=== PATIENT | female | born 1990 | race Caucasian/White ===

== ENCOUNTER 2016-08-31 13:25 | Emergency (ER) | payer BC, OTHER ==
[2016-08-31 13:40] VITALS: RESP 18
--- NOTE | 2016-08-31 14:02 | ED ---
Abdominal Pain HPI - General Chief Complaint: Abdominal Pain Stated Complaint: sharp pain under left rib Time Seen by Provider: 08/31/16 13:43 Source: patient, RN notes reviewed Mode of arrival: ambulatory Limitations: no limitations - History of Present Illness Initial Comments: 26-year-old female presents emergency Department chief complaint of left-sided rib pain. Patient states started last night and has not been better today. Patient denies any nausea, vomiting diarrhea constipation. Patient states that she had a low-grade urinary frequency but no dysuria. Denies fever or chills. She states it hurts when she twists and bends and also when she takes a deep inspiration. She denies any shortness of breath or pleuritic Chest pain. Patient denies any trauma. She had no history of abdominal surgeries. Denies any chance . Patient denies any recent cold-like symptoms. - Related Data Home Medications Medication Instructions Recorded Confirmed Desogestrel-Ethinyl Estradiol 1 tab PO DAILY 08/31/16 08/31/16 [Juleber 28 Day Tablet] Allergies Allergy/AdvReac Type Severity Reaction Status Date / Time erythromycin base Allergy Rash/Hives Verified 08/31/16 14:20 [Erythromycin Base] peanut Allergy Anaphylaxis Verified 08/31/16 14:20 tree nut [Tree Nut] Allergy Anaphylaxis Verified 08/31/16 14:20 Review of Systems ROS Statement: Those systems with pertinent positive or pertinent negative responses have been documented in the HPI. ROS Other: All systems not noted in ROS Statement are negative. Past Medical History Past Medical History: Seizure Disorder History of Any Multi-Drug Resistant Organisms: None Reported Past Surgical History: No Surgical Hx Reported Past Anesthesia/Blood Transfusion Reactions: No Reported Reaction Past Psychological History: No Psychological Hx Reported Smoking Status: Never smoker Past Alcohol Use History: Occasional Past Drug Use History: None Reported - Past Family History Mother Family Medical History: Unable to Obtain General Exam Limitations: no limitations General appearance: alert, in no apparent distress Head exam: Present: atraumatic, normocephalic, normal inspection Respiratory exam: Present: normal lung sounds bilaterally, chest wall tenderness (Moderate tenderness of the left anterior to lateral chest wall/ribs) . Absent: respiratory distress, wheezes, rales, rhonchi, stridor Cardiovascular Exam: Present: regular rate, normal rhythm, normal heart sounds. Absent: systolic murmur, diastolic murmur, rubs, gallop, clicks GI/Abdominal exam: Present: soft, normal bowel sounds. Absent: distended, tenderness, guarding, rebound, rigid Back exam: Absent: CVA tenderness (R), CVA tenderness (L) Course Vital Signs 08/31/16 13:36 Temperature 98.6 F Pulse Rate 68 Respiratory 18 Rate Blood Pressure 147/81 O2 Sat by Pulse 100 Oximetry Medical Decision Making - Medical Decision Making 26-year-old female presents emergency from for left chest wall pain. EKG within normal limits, chest x-ray, KUB within normal. urinalysis within normal limits. Patient also has chest wall inflammation. Patient be discharged time return parameters. - Lab Data Lab Results 08/31/16 08/31/16 Range/Units 14:00 14:00 Urine Color Yellow Urine Appearance Cloudy H (Clear) Urine pH 5.5 (5.0-8.0) Ur Specific [place] 1.020 (1.001-1.035) Urine Protein Negative (Negative) Urine Glucose (UA) Negative (Negative) Urine Ketones Negative (Negative) Urine Blood Moderate H (Negative) Urine Nitrite Negative (Negative) Urine Bilirubin Negative (Negative) Urine Urobilinogen <2.0 (<2.0) mg/dL Ur Leukocyte Esterase Negative (Negative) Urine RBC 3 (0-5) /hpf Urine WBC 2 (0-5) /hpf Ur Squamous Epith Cells 15 H (0-4) /hpf Urine Mucus Few H (None) /hpf Urine HCG, Qual Not Detected (Not Detectd) 08/31/16 14:57 EKG performed at 14:06 normal sinus rhythm with sinus arrhythmia 65 rate, MD interval 150, QRS duration 78, QT/QTC 434/451 Disposition Clinical Impression: Chest wall pain Disposition: HOME SELF-CARE Condition: Stable Instructions: Costochondritis (ED) Additional Instructions: Please return to the Emergency Department if symptoms worsen or any other concerns. Time of Disposition: 14:58
[2016-08-31 14:11] LABS: Appearance,Urine Cloudy (Clear); Bilirubin,Urine Negative (Negative); Glucose,Urine (UA) Negative (Negative); Ketones,Urine Negative (Negative); Leukocyte Esterase,Urine Negative (Negative); Mucus,Urine Few /hpf; Nitrite,Urine Negative (Negative); PH, Urine 5.5 (5.0-8.0); Particle Count 7391; Protein,Urine Negative (Negative); RBC,Urine 3 /hpf (0-5); Squamous Epithelial Cell,Urine 15 /hpf (0-4); UA Billing (MACRO vs. MICRO) MICRO; Urobilinogen,Urine <2.0 mg/dL (<2.0); WBC,Urine 2 /hpf (0-5)
--- NOTE | 2016-08-31 14:34 | XR ---
EXAMINATION TYPE: XR chest 2V DATE OF EXAM: 08/31/2016 2:30 PM COMPARISON: NONE HISTORY: Left-sided rib pain TECHNIQUE: Frontal and lateral views of the chest are obtained. FINDINGS: There is no focal air space opacity, pleural effusion, or pneumothorax seen. The cardiac silhouette size is within normal limits. Patient is rotated. The osseous structures are intact. IMPRESSION: No acute cardiopulmonary process.
--- NOTE | 2016-08-31 14:38 | XR ---
Abdomen HISTORY: Left-sided rib pain Frontal view of the abdomen on 2 images Correlation to previous exam 08 November 2009 There is a levoscoliosis. No evident fracture. Lung bases are clear. No pneumoperitoneum or bowel obs truction. IMPRESSION: Spinal curvature. Bone scan could be performed for increased sensitivity as indicated.
[2016-08-31 15:13] VITALS: BP 125/78; PULSE 82; TEMP 97
== END 2016-08-31 15:11 | disposition home or self-care (01) ==
LOC: EC 13:25
DX: R07.89 Other chest pain (principal); J98.8 Other specified respiratory disorders; R35.0 Frequency of micturition; R10.9 Unspecified abdominal pain; Z79.3 Long term (current) use of hormonal contraceptives; Z88.1 Allergy status to other antibiotic agents; Z91.010 Allergy to peanuts; Z91.018 Allergy to other foods
CPT/HCPCS: 71020; 74000; 81001; 81025; 93005; 99284

== ENCOUNTER → 2016-10-08 | Outpatient (CLI) | payer BC, OTHER ==
--- NOTE | 2016-10-08 08:23 | CT ---
EXAMINATION TYPE: CT abdomen pelvis wo/w con DATE OF EXAM: 10/08/2016 COMPARISON: NONE HISTORY: Lt mid abdomen pain CT DLP: 1458.9 mGycm Automated exposure control for dose reduction was used. CONTRAST: CT scan of the abdomen pelvis is performed without and with IV Contrast, patient injected with 100 mL of Omnipaque 300. FINDINGS- LUNG BASES- No significant abnormality is appreciated. LIVER/GB- No gross abnormality is appreciated. PANCREAS- No gross abnormality is seen. SPLEEN- No gross abnormality is seen. ADRENALS- No gross abnormality is seen. KIDNEYS/BLADDER- no hydronephrosis nephrolithiasis or renal mass. BOWEL- no bowel dilatation. Normal appendix. Small hiatal hernia. LYMPH NODES- No greater than 1cm abdominal or pelvic lymph nodes are appreciated. OSSEOUS STRUCTURES- No significant abnormality is seen. OTHER- aorta of normal caliber small periumbilical hernia. IMPRESSION- 1. Small hiatal hernia. 2. Small periumbilical hernia with no inflammatory changes.
== END | disposition home or self-care (01) ==
LOC: RADCTMAIN 07:36
PROVIDERS: ATTEND Family Medicine
DX: K42.9 Umbilical hernia without obstruction or gangrene (principal); K44.9 Diaphragmatic hernia without obstruction or gangrene
CPT/HCPCS: 74178; Q9967

== ENCOUNTER → 2021-02-04 | Outpatient (CLI) | payer BC ==
--- NOTE | 2021-02-04 09:53 | CT ---
EXAMINATION TYPE: CT sinus wo con DATE OF EXAM: 02/04/2021 COMPARISON: CT facial bones 2011 HISTORY: sinusitis and nasal congestion CT DLP: 558 mGycm. Automated Exposure Control for Dose Reduc tion was Utilized. TECHNIQUE: CT scan of the sinuses is performed without contrast, axial images are obtained, coronal r eformatted images are also reviewed. FINDINGS: The paranasal sinuses including the frontal, ethmoid, sphenoid, and maxillary sinuses bila terally are remarkable for probable mucus retention cyst in the right maxillary sinus. The ostiomeat al complex is patent bilaterally on the coronal images. Mild deviation of the nasal septum noted, the re is thickening of the middle and inferior turbinate on the right. Visualized portion of mastoid air cells show no abnormal opacification. The globes are intact bilate rally. 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 IMPRESSION: The sinuses are remarkable for mucus retention cyst. Middle and inferior turbinate thicke joaquin on the right.
== END | disposition home or self-care (01) ==
LOC: RADCTMAIN 07:24
PROVIDERS: ATTEND Family Medicine
DX: J34.89 Other specified disorders of nose and nasal sinuses (principal)
CPT/HCPCS: 70486

== ENCOUNTER → 2021-05-26 | Outpatient (CLI) | payer BC ==
--- NOTE | 2021-05-26 10:46 | US ---
EXAMINATION TYPE: US venous doppler duplex LE RT DATE OF EXAM: 05/26/2021 10:29 AM COMPARISON: NONE CLINICAL HISTORY: M79.604 PAIN IN RT LEG. Pt states pain behind right knee x 3 weeks SIDE PERFORMED: Right TECHNIQUE: The lower extremity deep venous system is examined utilizing real time linear array sonog chase with graded compression, doppler sonography and color-flow sonography. VESSELS IMAGED: Common Femoral Vein Deep Femoral Vein Greater Saphenous Vein * Femoral Vein Popliteal Vein Small Saphenous Vein * Proximal Calf Veins (* superficial vessels) Right Leg: Negative for DVT Attempted to call Dr's office with results at time of exam, no answer Grayscale, color doppler, spectral doppler imaging performed of the deep veins of the right lower ext remity. There is normal flow, compressibility, vascular waveforms. IMPRESSION: No ultrasound evidence for acute DVT in the right lower extremity.
--- NOTE | 2021-05-26 12:17 | XR ---
EXAMINATION TYPE: XR chest 2V DATE OF EXAM: 05/26/2021 COMPARISON: Chest x-ray 08/31/2016 HISTORY: Dyspnea, shortness breath and cough TECHNIQUE: Frontal and lateral views of the chest are obtained. FINDINGS: There is no focal air space opacity, pleural effusion, or pneumothorax seen. The cardiac silhouette size is within normal limits. Right hemidiaphragm is elevated. The osseous structures ar e intact. IMPRESSION: No acute cardiopulmonary process.
== END | disposition home or self-care (01) ==
LOC: RADUSWWP 10:13
PROVIDERS: ATTEND Family Medicine
DX: M79.604 Pain in right leg (principal); R06.00 Dyspnea, unspecified; R05.9 Cough, unspecified
CPT/HCPCS: 71046

== ENCOUNTER → 2021-05-27 | Outpatient (CLI) | payer BC ==
--- NOTE | 2021-05-27 18:31 | CT ---
EXAMINATION TYPE: CT chest angio for PE DATE OF EXAM: 05/27/2021 COMPARISON: None HISTORY: Dyspnea, Hx Covid Stat hold and call CT DLP: 309.10 mGycm Automated exposure control for dose reduction was used. CONTRAST: Performed with IV Contrast, patient injected with 100 mL of Isovue 370. Images obtained from the thoracic inlet to the diaphragm without IV contrast. There are Three-D postprocessed images. The lungs are clear of consolidation. There is no evidence of a pulmonary mass. There is no pleural e ffusion. There is no pericardial effusion. There is no mediastinal adenopathy. There are no hilar masses. There is normal contrast opacification of the pulmonary arteries. There are no filling defects. Upper abdominal soft tissues are intact. The thoracic spine is intact. There is no compression fracture. Sternum is intact. There is no eviden ce of a rib fracture. IMPRESSION: Negative CT scan of the chest. No evidence of pulmonary embolism.
== END | disposition home or self-care (01) ==
LOC: RADCTMAIN 17:38
PROVIDERS: ATTEND Family Medicine
DX: R06.00 Dyspnea, unspecified (principal); Z86.16 Personal history of COVID-19
CPT/HCPCS: 71275; Q9967

== ENCOUNTER 2023-05-28 16:35 | Outpatient (CLI) | payer BC ==
[2023-05-28 17:03] LABS: Appearance,Urine Clear (Clear); Bilirubin,Urine Negative (Negative); Blood,Urine Negative (Negative); Color,Urine Colorless; Glucose,Urine (UA) Negative (Negative); Ketones,Urine 4+ (Negative); Leukocyte Esterase,Urine Negative (Negative); Nitrite,Urine Negative (Negative); Protein,Urine Negative (Negative); Specific Gravity,Urine 1.011 (1.001-1.035); Urobilinogen,Urine <2.0 mg/dL (<2.0)
[2023-05-28] MEDS: LACTATED RINGERS 1,000 ML IV SCH ×2 (17:47→18:13)
[2023-05-28 19:03] VITALS: BP 135/86; PULSE 102; RESP 18; TEMP 98.1
--- NOTE | 2023-05-29 11:21 | P.MSEPDOC ---
Presenting Problems - Arrival Data Date of Arrival on Unit: 05/28/23 Time of Arrival on Unit: 16:35 Mode of Transport: Ambulatory - Complaint OB-Reason for Admission/Chief Complaint: Pain Comment: back pain, diarrhea, vag pressure Medical History - Information : 3 Para: 2 Term: 2 : 0 Abortions: Spontaneous or Elective: 0 Number of Living Children: 2 - Gestational Age Gestational Age by MAURIZIO (wks/days): 35 Weeks and 0 Days Review of Systems - Review of Systems Constitutional: No problems Breast: No problems ENT: No problems Cardiovascular: No problems Respiratory: No problems Gastrointestinal: No problems Genitourinary: No problems Musculoskeletal: No problems Neurological: No problems Skin: No problems Vital Signs - Temperature Temperature: 98.1 F Temperature Source: Temporal Artery Scan - Pulse Right Sitting Brachial Pulse Rate: 102 Pulse Assessment Method: Automatic Cuff - Respirations Respiratory Rate: 18 Oxygen Delivery Method: Room Air O2 Sat by Pulse Oximetry: 100 - Blood Pressure Right Arm Sitting Blood Pressure: 135/86 Blood Pressure Mean: 102 Blood Pressure Source: Automatic Cuff Medical Screen Scoring - Cervical Exam Dilation (cm): 1 Effacement (%): 0 Station: -3 Membranes: Intact - Assessment - Baby A Baseline FHR: 125 Heart Rate - NICHD Category: Category I (Normal) NST: Reactive Physician Notification - Physician Notified Physician Notified Date: 05/28/23 Physician Notified Time: 17:30 Physician: Tramaine Suarez Order Received: Yes (ok to dc home after IV fluids) Maternal Triage Index - Maternal Triage Index Presenting for scheduled procedure w/no complaint: No - Stat/Priority 1 Stat Priority 1: No - Urgent/Priority 2 Urgent Priority 2: No - Prompt/Priority 3 Prompt Priority 3: No - Non-Urgent/Priority 4 Non-Urgent Priority 4: Yes Criteria Met for Priority 4: diarrhea, possibly related to food poisoning. Pt hydrated with 2 L LR and felt better, requested dc home. Follow up sheduled in the office 06/09/23. Disposition - Disposition OB Disposition: Discharge to home, Written follow up instructions reviewed Discharge Date: 05/28/23 Discharge Time: 18:54 I agree with the RN Medical Screening Exam: Yes Physician's MSE Comment: I have neither seen nor examined the patient. Case reviewed; plan agreed upon as documented in EMR&OBIX.: Yes Diagnosis: RELATED CONDITIONS, UNSPECIFIED, THIRD TRIMESTER
== END 2023-05-28 18:55 | disposition home or self-care (01) ==
LOC: FBPOP 16:35
PROVIDERS: ATTEND Obstetrics & Gynecology
DX: O26.893 Other specified pregnancy related conditions, third trimester (principal); M54.9 Dorsalgia, unspecified; M51.9 Unspecified thoracic, thoracolumbar and lumbosacral intervertebral disc disorder; O99.613 Diseases of the digestive system complicating pregnancy, third trimester; R19.7 Diarrhea, unspecified; O99.891 Other specified diseases and conditions complicating pregnancy; N89.8 Other specified noninflammatory disorders of vagina; Z3A.35 35 weeks gestation of pregnancy; Z88.1 Allergy status to other antibiotic agents; Z91.010 Allergy to peanuts; Z91.018 Allergy to other foods
CPT/HCPCS: 59025; 81003; 96360; 99214

== ENCOUNTER → 2024-05-18 | Outpatient (CLI) | payer BC ==
--- NOTE | 2024-05-18 14:35 | US ---
EXAMINATION TYPE: US kidneys/renal and bladder DATE OF EXAM: 05/18/2024 COMPARISON: CT CLINICAL INDICATION: Female, 34 years old with history of Z87.442 PERSONAL HISTORY OF URINARY CALCULI ; Pt states flank pain, more on right side, pt states history of renal stones TECHNIQUE: Grayscale imaging of the bilateral kidneys and urinary bladder: FINDINGS: EXAM MEASUREMENTS: Right Kidney: 10.7 x 4.8 x 5.6 cm Left Kidney: 9.6 x 5.9 x 5.3 cm Right Kidney: No hydronephrosis or masses seen Left Kidney: No hydronephrosis or masses seen Bladder: wnl Bilateral Jets seen: Yes IMPRESSION: No acute abnormality renal ultrasound [facility], , 05/18/2024 2:32 PM
== END ==
LOC: RADUSWWP 14:01
PROVIDERS: ATTEND Family Medicine
DX: R10.9 Unspecified abdominal pain (principal); Z87.442 Personal history of urinary calculi
CPT/HCPCS: 76770